=== PATIENT | female | born 1975 | race Caucasian/White ===

== ENCOUNTER 2016-11-29 07:55 | Emergency (ER) | payer MEDICAID ==
[~2016-11-29] VITALS: Ht 147.3 cm; Wt 70.3 kg
[2016-11-29 08:06] VITALS: BP 128/89
--- NOTE | 2016-11-29 08:10 | NUR ---
41/F BIB SELF C/O N/V ,LOWER ABDOMINAL PAIN & LOWER BACK PAIN X 1 WEEK. PATIENT DENIES DIARRHEA; SKIN IS PINK/WARM/DRY; AAOX4 WITH EVEN AND STEADY GAIT; LUNGS CLEAR BL; HR EVEN AND REGULAR; PT DENIES ANY FEVER, CP, SOB, OR COUGH AT THIS TIME; PATIENT STATES PAIN OF 7/10 AT THIS TIME; VSS; PATIENT POSITIONED FOR COMFORT; HOB ELEVATED; BEDRAILS UP X2; BED DOWN. ER MD MADE AWARE OF PT STATUS.
[2016-11-29 08:48] VITALS: BP 116/74
--- NOTE | 2016-11-29 08:48 | NUR ---
Patient discharged with v/s stable. Written and verbal after care instructions given and explained. Patient alert, oriented and verbalized understanding of instructions. Ambulatory with steady gait. All questions addressed prior to discharge. ID band removed. Patient advised to follow up with PMD. Rx of PYRIDIUM, MIRALAX POWDER FOR SOLUTION, ZOFRAN & CIPRO given. Patient educated on indication of medication including possible reaction and side effects. Opportunity to ask questions provided and answered.
== END 2016-11-29 08:48 | disposition home or self-care (01) ==
LOC: MED 07:56
DX: N12 Tubulo-interstitial nephritis, not specified as acute or chronic (principal); K59.00 Constipation, unspecified
CPT/HCPCS: 81002; 81025; 99283

== ENCOUNTER 2017-01-21 07:48 | Emergency (ER) | payer MEDICAID ==
[~2017-01-21] VITALS: Ht 152.4 cm; Wt 75.3 kg
[2017-01-21 07:59] VITALS: BP 141/86
--- NOTE | 2017-01-21 08:10 | NUR ---
Patient ambulated to bed 08.
--- NOTE | 2017-01-21 08:15 | NUR ---
Dr. Bower evaluating patient at bedside.
--- NOTE | 2017-01-21 08:20 | NUR ---
PATIENT PRESENTS TO ED WITH C/O SUPRAPUBIC PAIN X 1 WK ---VAGINAL DRYNESS/IRRITATION--- NAUSEA/VOMITING X YESTERDAY --4 EPISODES YESTERDAY INTERMITTENT RINGING OF THE EARS X 1 WK HX-----DENIES RX-----NONE . DENIES DIARRHEA; SKIN IS PINK/WARM/DRY; AAOX4 WITH EVEN AND STEADY GAIT; LUNGS CLEAR BL; HR EVEN AND REGULAR; PT DENIES ANY FEVER, CP, SOB, OR COUGH AT THIS TIME; PATIENT STATES PAIN OF 8/10 AT THIS TIME; VSS; PATIENT POSITIONED FOR COMFORT; HOB ELEVATED; BEDRAILS UP X2; BED DOWN. ER MD MADE AWARE OF PT STATUS.
[2017-01-21 08:40] LABS: HEMOGLOBIN 13.5 g/dL (12.0-16.0); MEAN CORPUSCULAR HEMOGLOBIN 31 pg (27-31); MEAN CORPUSCULAR HGB CONC 34 g/dL (33-37); MEAN CORPUSCULAR VOLUME 91 fL (80-94); PLATELET COUNT (AUTO) 332 K/uL (140-450); RED CELL DISTRIBUTION WIDTH 12.4 % (11.6-13.7); WHITE BLOOD COUNT (AUTO) 8.3 K/uL (4.8-10.8)
[2017-01-21 08:44] LABS: BILIRUBIN,URINE NEGATIVE (NEGATIVE); BLOOD, URINE NEGATIVE (NEGATIVE); COLOR,URINE YELLOW (YELLOW); LEUKOCYTE ESTERASE ,URINE NEGATIVE (NEGATIVE); NITRITE, URINE NEGATIVE (NEGATIVE); PH,URINE 5.5 (5.0-9.0); PROTEIN,URINE NEGATIVE (NEGATIVE); UGLUCOSE NEGATIVE (NEGATIVE); UROBILINOGEN,URINE 0.2 EU/dL (0.2 - 1)
[2017-01-21] MEDS ORDERED: ACETAMINOPHEN EXTRA STRENGTH 500 MG TAB PO ONE (08:50)
[2017-01-21 08:51] LABS: ANION GAP 12.9 (8-16); CALCIUM 8.8 mg/dL (8.5-10.1); CARBON DIOXIDE 26.7 mmol/L (21-32); CREATININE 0.6 mg/dL (0.6-1.3); POTASSIUM 3.6 mmol/L (3.5-5.1)
[2017-01-21 08:57] LABS: ALBUMIN 3.7 g/dL (3.4-5.0); TOTAL BILIRUBIN 1.4 mg/dL (0.0-1.0); TOTAL PROTEIN, SERUM 7.5 g/dL (6.4-8.2)
[2017-01-21 08:57] LABS: APPEARANCE,URINE SLIGHTLY HAZY (CLEAR)
[2017-01-21] MEDS ORDERED: ACETAMINOPHEN EXTRA STRENGTH 500 MG TAB ONE (08:57)
[2017-01-21 08:59] LABS: BACTERIA,URINE None Seen /HPF (None Seen); RBC,URINE NONE SEEN /HPF (0-5); SQUAMOUS EPITHELIAL CELL,UR None Seen /LPF (0-3 (FEW)); WBC,URINE 0-5 (RARE) /HPF (0-5)
[2017-01-21 09:03] LABS: BASOPHILS % (MANUAL) 1 % (0-2)
[2017-01-21 09:04] LABS: EOSINOPHILS % (MANUAL) 4 % (0-4); MONOCYTES % (MANUAL) 5 % (5-12)
[2017-01-21 09:05] LABS: LYMPHOCYTES % (MANUAL) 38 % (20-46); NEUTROPHILS % (MANUAL) 52 (43-65); PLATELET ESTIMATE ADEQUATE
[2017-01-21 10:00] VITALS: BP 124/76
--- NOTE | 2017-01-21 10:00 | NUR ---
Patient discharged with v/s stable. Written and verbal after care instructions given and explained. Patient alert, oriented and verbalized understanding of instructions. Ambulatory with steady gait. All questions addressed prior to discharge. ID band removed. Patient advised to follow up with PMD. Rx of CLOTRIMAZOLE, DOXYCYCLINE, TYLENOL given. Patient educated on indication of medication including possible reaction and side effects. Opportunity to ask questions provided and answered.
== END 2017-01-21 10:00 | disposition home or self-care (01) ==
LOC: MED 07:48
DX: N30.90 Cystitis, unspecified without hematuria (principal)
CPT/HCPCS: 36415; 80053; 81001; 81025; 82150; 83690; 85025; 99284

== ENCOUNTER 2018-07-11 16:35 | Emergency (ER) | payer MEDICAID ==
[~2018-07-11] VITALS: Ht 147.3 cm; Wt 76.0 kg
[2018-07-11 17:02] VITALS: BP 140/94
[2018-07-11] MEDS ORDERED: ONDANSETRON 4 MG/2 ML VIAL IVP ONE (17:35)
[2018-07-11] MEDS ORDERED: MORPHINE SULFATE 4 MG/ML SYR IVP ONE (17:35)
[2018-07-11] MEDS: NACL 0.9% 1,000 ML IV SCH ×2 (17:56→17:57)
[2018-07-11 18:03] LABS: BASOPHILS % (AUTO) 0.3 % (0.0-2.0); EOSINOPHILS # (AUTO) 0.3 K/uL (0-0.4); HEMATOCRIT 40.7 % (36-48); HEMOGLOBIN 13.8 g/dL (12.0-16.0); LYMPHOCYTES # (AUTO) 3.9 K/uL (2.5-16.5); LYMPHOCYTES % (AUTO) 34.7 % (20.5-51.1); MEAN CORPUSCULAR HEMOGLOBIN 31 pg (27-31); MEAN CORPUSCULAR HGB CONC 34 g/dL (33-37); MEAN CORPUSCULAR VOLUME 91.1 fL (80-94); MONOCYTES # (AUTO) 0.8 K/uL (0.8-1.0); MONOCYTES % (AUTO) 7.1 % (1.7-9.3); NEUTROPHILS # (AUTO) 6.2 K/uL (1.8-7.7); NEUTROPHILS % (AUTO) 54.9 % (42.2-75.2); PLATELET COUNT (AUTO) 331 K/uL (140-450); RED BLOOD CELL COUNT(AUTO) 4.47 MIL/uL (4.20-5.40); RED CELL DISTRIBUTION WIDTH 13.1 % (11.6-13.7); WHITE BLOOD COUNT (AUTO) 11.3 K/uL (4.8-10.8)
[2018-07-11 18:05] LABS: APPEARANCE,URINE CLEAR (CLEAR); BILIRUBIN,URINE NEGATIVE (NEGATIVE); BLOOD, URINE NEGATIVE (NEGATIVE); COLOR,URINE STRAW (YELLOW); LEUKOCYTE ESTERASE ,URINE NEGATIVE (NEGATIVE); NITRITE, URINE NEGATIVE (NEGATIVE); UGLUCOSE NEGATIVE (NEGATIVE)
[2018-07-11 18:13] LABS: ANION GAP 10.1 (8-16); CARBON DIOXIDE 28.5 mmol/L (21-32); CREATININE 0.7 mg/dL (0.6-1.3); POTASSIUM 3.6 mmol/L (3.5-5.1)
[2018-07-11 18:19] LABS: ALBUMIN 4.2 g/dL (3.4-5.0); TOTAL BILIRUBIN 0.5 mg/dL (0.0-1.0)
[2018-07-11] MEDS ORDERED: KETOROLAC 30 MG/ML VIAL IM ONE (21:00)
[2018-07-11 21:09] VITALS: BP 132/72
== END 2018-07-11 21:10 | disposition home or self-care (01) ==
LOC: MED 16:35
DX: K42.9 Umbilical hernia without obstruction or gangrene (principal); N83.8 Other noninflammatory disorders of ovary, fallopian tube and broad ligament
CPT/HCPCS: 36415; 74176; 80053; 81003; 83690; 84703; 85025; 96361; 96374; 96375; 99285; J1885; J2270; J2405; J7030

== ENCOUNTER 2019-10-23 08:25 | Emergency (ER) | payer MEDICAID ==
[~2019-10-23] VITALS: Ht 147.3 cm; Wt 79.4 kg
--- NOTE | 2019-10-23 08:31 | NUR ---
Patient ambulated to bed 3. RN evaluating patient at bedside.
[2019-10-23 08:34] VITALS: BP 141/84
--- NOTE | 2019-10-23 08:34 | NUR ---
44/F BIB SELF C/O COUGH, SORE THROAT , INTERMITENT MID ABD PAIN & N/V/D X 3 DAYS . SKIN IS PINK/WARM/DRY; AAOX4 WITH EVEN AND STEADY GAIT; LUNGS CLEAR BL; HR EVEN AND REGULAR;ABD SOFT. PATIENT STATES PAIN OF 8/10 AT THIS TIME. PATIENT POSITIONED FOR COMFORT; HOB ELEVATED; BEDRAILS UP X1; BED DOWN. ER MD MADE AWARE OF PT STATUS.
--- NOTE | 2019-10-23 08:35 | NUR ---
Dr. Puri is evaluating the patient at bedside.
[2019-10-23] MEDS: NACL 0.9% 1,000 ML IV ONE (08:54)
[2019-10-23] MEDS: ONDANSETRON 4 MG/2 ML VIAL IVP ONE (08:54)
[2019-10-23] MEDS: KETOROLAC 30 MG/ML VIAL IVP ONE (08:54)
[2019-10-23 08:59] LABS: BILIRUBIN,URINE NEGATIVE (NEGATIVE); BLOOD, URINE TRACE-I (NEGATIVE); LEUKOCYTE ESTERASE ,URINE NEGATIVE (NEGATIVE); NITRITE, URINE NEGATIVE (NEGATIVE); PH,URINE 6.5 (5.0-9.0); UGLUCOSE NEGATIVE (NEGATIVE)
[2019-10-23 09:06] LABS: BASOPHILS % (AUTO) 0.7 % (0.0-2.0); EOSINOPHILS # (AUTO) 0.1 K/uL (0-0.4); EOSINOPHILS % (AUTO) 1.5 % (0.0-4.0); HEMATOCRIT 42.7 % (36-48); HEMOGLOBIN 14.3 g/dL (12.0-16.0); LYMPHOCYTES # (AUTO) 2.5 K/uL (2.5-16.5); LYMPHOCYTES % (AUTO) 53.4 % (20.5-51.1); MEAN CORPUSCULAR HEMOGLOBIN 31 pg (27-31); MEAN CORPUSCULAR HGB CONC 34 g/dL (33-37); MEAN CORPUSCULAR VOLUME 92.6 fL (80-94); MONOCYTES # (AUTO) 0.6 K/uL (0.8-1.0); MONOCYTES % (AUTO) 12.2 % (1.7-9.3); NEUTROPHILS # (AUTO) 1.5 K/uL (1.8-7.7); NEUTROPHILS % (AUTO) 32.2 % (42.2-75.2); PLATELET COUNT (AUTO) 315 K/uL (140-450); RED BLOOD CELL COUNT(AUTO) 4.61 MIL/uL (4.20-5.40); RED CELL DISTRIBUTION WIDTH 13.3 % (11.6-13.7); WHITE BLOOD COUNT (AUTO) 4.6 K/uL (4.8-10.8)
--- NOTE | 2019-10-23 09:35 | NUR ---
Dr. Puri is reevaluating the patient at bedside.
[2019-10-23 09:36] LABS: APPEARANCE,URINE HAZY (CLEAR); COLOR,URINE YELLOW (YELLOW); RBC,URINE 0-5 /HPF (0-5); WBC,URINE 0-5 /HPF (0-5)
[2019-10-23 11:05] LABS: ALBUMIN 3.5 g/dL (3.4-5.0); ANION GAP 10.1 (8-16); CARBON DIOXIDE 29.9 mmol/L (21-32); CREATININE 0.6 mg/dL (0.6-1.3); TOTAL BILIRUBIN 0.4 mg/dL (0.0-1.0)
[2019-10-23 12:32] VITALS: BP 123/69
== END 2019-10-23 12:32 | disposition home or self-care (01) ==
LOC: MED 08:25
DX: K52.9 Noninfective gastroenteritis and colitis, unspecified (principal)
CPT/HCPCS: 36415; 80053; 81001; 82150; 83690; 84703; 85025; 96374; 96375; 99284; J1885; J2405; J7030

== ENCOUNTER 2019-11-06 09:58 | Emergency (ER) | payer MEDICAID ==
[~2019-11-06] VITALS: Ht 152.4 cm; Wt 78.5 kg
[2019-11-06 10:04] VITALS: BP 158/100
--- NOTE | 2019-11-06 10:21 | NUR ---
44 YO F C/O VOMITING AND ABD PAIN X 1 DAY. PT STATES THAT SHE ALSO HAS LEFT SIDED HEAD, EAR, EYE AND NECK PAIN. +COUGH X 2 WEEKS. DENIES FEVER, DIARRHEA. NO MEDICATIONS TAKEN. PT WAS SEEN IN ER 3 WEEKS AGO FOR SAME SYMPTOMS. GIVEN UNRECALLED MEDICATION FOR VOMITING WHICH PROVIDED NO RELIEF. VSS. PT POSITIONED COMFORTABLY IN BED, SIDERAILS UP. ERMD MADE AWARE. NO PMH NO MEDS NKA
[2019-11-06] MEDS ORDERED: ACETAMINOPHEN 325 MG TAB PO ONE (10:35)
[2019-11-06] MEDS ORDERED: ONDANSETRON 4 MG ODT PO ONE (10:35)
[2019-11-06] MEDS ORDERED: IPRATROPIUM 0.02% 0.5 MG/2.5 ML NEBU INH ONE (10:35)
[2019-11-06] MEDS ORDERED: ALBUTEROL 0.083% 2.5 MG/3 ML NEBU INH ONE (10:35)
[2019-11-06] MEDS ORDERED: predniSONE 20 MG TAB PO ONE (10:35)
[2019-11-06] MEDS ORDERED: FAMOTIDINE 20 MG TAB PO ONE (10:35)
[2019-11-06 11:52] VITALS: BP 158/100
--- NOTE | 2019-11-06 11:52 | NUR ---
Patient discharged with v/s stable. Written and verbal after care instructions given and explained. Patient alert, oriented and verbalized understanding of instructions. Ambulatory with steady gait. All questions addressed prior to discharge. ID band removed. Patient advised to follow up with PMD. Rx of PEPCID, ZOFRAN, AEROCHAMBER, ALBUTEROL, PREDNISONE given. Patient educated on indication of medication including possible reaction and side effects. Opportunity to ask questions provided and answered.
== END 2019-11-06 11:52 | disposition home or self-care (01) ==
LOC: MED 09:58
DX: B34.9 Viral infection, unspecified (principal); J98.01 Acute bronchospasm; K29.70 Gastritis, unspecified, without bleeding; Z98.890 Other specified postprocedural states
CPT/HCPCS: 71045; 87804; 94640; 99284; J7512; J7613; J7644; Q0092; Q0162

== ENCOUNTER 2024-02-26 02:15 | Emergency (ER) | payer MEDICAID, OTHER ==
[~2024-02-26] VITALS: Ht 147.3 cm; Wt 81.6 kg
[2024-02-26 02:52] VITALS: BP 142/99; PULSE 87; RESP 18; TEMP 98; O2SAT 98
[2024-02-26 03:44] LABS: BASOPHILS # (AUTO) 0.1 K/uL (0.00-0.22); BASOPHILS % (AUTO) 0.5 % (0.0-2.0); EOSINOPHILS # (AUTO) 0.4 K/uL (0-0.4); EOSINOPHILS % (AUTO) 2.7 % (0.0-4.0); HEMATOCRIT 37.3 % (36-48); HEMOGLOBIN 12.7 g/dL (12.0-16.0); LYMPHOCYTES # (AUTO) 6.4 K/uL (2.5-16.5); LYMPHOCYTES % (AUTO) 47.6 % (20.5-51.1); MEAN CORPUSCULAR HEMOGLOBIN 31 pg (27-31); MEAN CORPUSCULAR HGB CONC 34 g/dL (33-37); MEAN CORPUSCULAR VOLUME 91.5 fL (80-94); MONOCYTES # (AUTO) 0.9 K/uL (0.8-1.0); MONOCYTES % (AUTO) 6.8 % (1.7-9.3); NEUTROPHILS # (AUTO) 5.7 K/uL (1.8-7.7); NEUTROPHILS % (AUTO) 42.4 % (42.2-75.2); PLATELET COUNT (AUTO) 393 K/uL (140-450); RED BLOOD CELL COUNT(AUTO) 4.08 MIL/uL (4.20-5.40); WHITE BLOOD COUNT (AUTO) 13.5 K/uL (4.8-10.8)
[2024-02-26 03:56] LABS: APPEARANCE,URINE CLEAR (CLEAR); BILIRUBIN,URINE NEGATIVE (NEGATIVE); BLOOD, URINE NEGATIVE (NEGATIVE); COLOR,URINE YELLOW (YELLOW); LEUKOCYTE ESTERASE ,URINE NEGATIVE (NEGATIVE); NITRITE, URINE NEGATIVE (NEGATIVE); PROTEIN,URINE NEGATIVE (NEGATIVE); UGLUCOSE NEGATIVE (NEGATIVE); UROBILINOGEN,URINE 0.2 EU/dL (0.2 - 1)
[2024-02-26 04:00] LABS: ALBUMIN 3.3 g/dL (3.4-5.0); ANION GAP 11.2 (8-16); CALCIUM 8.2 mg/dL (8.5-10.1); CARBON DIOXIDE 27.9 mmol/L (21-32); CREATININE 0.7 mg/dL (0.6-1.3); POTASSIUM 4.1 mmol/L (3.5-5.1); TOTAL BILIRUBIN 0.6 mg/dL (0.0-1.0); TOTAL PROTEIN, SERUM 6.8 g/dL (6.4-8.2)
[2024-02-26] MEDS: ALUMINUM HYD/MAG/SIMETHICONE 30 ML UDC PO ONE (05:47)
[2024-02-26] MEDS: ACETAMINOPHEN EXTRA STRENGTH 500 MG TAB PO ONE (05:48)
[2024-02-26] MEDS ORDERED: AZIT250T4 PO ×2 (06:21→09:38)
[2024-02-26] MEDS ORDERED: MAG355OR2 PO ×2 (06:21→09:38)
[2024-02-26] MEDS ORDERED: PROM118S5 PO ×2 (06:21→09:38)
[2024-02-26 09:29] VITALS: BP 142/92; PULSE 71; RESP 16; TEMP 36.50292; O2SAT 97
== END 2024-02-26 09:29 | disposition home or self-care (01) ==
LOC: MED 02:15
DX: R10.9 Unspecified abdominal pain (principal); R05.9 Cough, unspecified; Z79.1 Long term (current) use of non-steroidal anti-inflammatories (NSAID); Z79.2 Long term (current) use of antibiotics; Z79.899 Other long term (current) drug therapy
CPT/HCPCS: 36415; 71045; 80053; 81003; 83690; 85025; 99285